=== PATIENT | female | born 1995 | race African-American/Black ===

== ENCOUNTER 2016-08-26 02:17 | Emergency (ER) | payer MEDICAID ==
[2016-08-26] MEDS ORDERED: OXYCODONE HCL 5 MG TABLET PO ONE (02:18)
[2016-08-26] MEDS ORDERED: DIPHTHERIA AND TETANUS (ADULT) 0.5 ML SYR IM ONE (02:22)
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
[2016-08-26 02:32] VITALS: BMI 20.9
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
== END 2016-08-26 02:27 | disposition home or self-care (01) ==
LOC: ED 02:17
DX: S91.302A Unspecified open wound, left foot, initial encounter (principal); E11.9 Type 2 diabetes mellitus without complications; F17.210 Nicotine dependence, cigarettes, uncomplicated; W34.00XA Accidental discharge from unspecified firearms or gun, initial encounter; Z23 Encounter for immunization
CPT/HCPCS: 12001; 73630; 90471; 90714; 99283; J3490; 12002